=== PATIENT | male | born 1975 | race Two or more races ===

== ENCOUNTER 2020-11-07 08:20 | Emergency (ER) | payer BC, OTHER, SELFPAY ==
[~2020-11-07] VITALS: Ht 170.2 cm; Wt 91.3 kg
[2020-11-07 08:58] LABS: BASOPHILS % (AUTO) 0 % (0-1); EOSINOPHILS % (AUTO) 1 % (1-7); LYMPHOCYTES % (AUTO) 38 % (22-44); MEAN CORPUSCULAR HEMOGLOBIN 28.9 pg (27.5-34.5); MEAN CORPUSCULAR HGB CONC 34.2 g/dL (33.2-36.2); MEAN PLATELET VOLUME 7.9 fL (7.4-10.4); MONOCYTES % (AUTO) 6 % (2-9); NEUTROPHILS % (AUTO) 54 % (42-75); PLATELET COUNT 276 x10^3/uL (130-400); RED BLOOD COUNT 5.73 x10^6/uL (4.38-5.82); RED CELL DISTRIBUTION WIDTH 13.7 % (9.4-14.8)
[2020-11-07 08:59] LABS: MD NO
[2020-11-07] MEDS ORDERED: ASPIRIN 81 MG TABLET CHEW PO ONE (09:00)
[2020-11-07] MEDS ORDERED: PLEASE ENTER ALLERGIES MC SCH (09:00)
[2020-11-07 09:02] LABS: ALBUMIN 3.7 g/dL (3.4-5.0); CALCIUM 9.4 mg/dL (8.5-10.1)
[2020-11-07 09:08] LABS: ALANINE AMINOTRANSFERASE 35 U/L (12-78); ALKALINE PHOSPHATASE 70 U/L (45-117); BILIRUBIN,TOTAL 0.7 mg/dL (0.2-1.0); CREATININE 1.12 mg/dL (0.7-1.3); TOTAL PROTEIN 7.9 g/dL (6.4-8.2); TROPONIN I < 0.015 ng/mL (0.000-0.045)
[2020-11-07 09:11] LABS: CHLORIDE 108 mmol/L (98-107)
[2020-11-07 09:13] LABS: ANION GAP 3 mmol/L (5-15)
--- NOTE | 2020-11-07 09:15 | NUR ---
INSULATION FOREMAN: PT TO ROOM FROM [facility]
[2020-11-07] MEDS ORDERED: ASPIRIN 81 MG TABLET CHEW ONE (09:23)
--- NOTE | 2020-11-07 09:30 | NUR ---
PT PRESENTS TO ED WITH INTERMITTENT ACHING AND SHARP CP STARTING AT 0600 THIS AM THAT WOKE PT UP FROM SLEEP. PT REPORTS PAIN IS "DOWN" RIGHT NOW AT 6/10. PT DENIES SOB, NAUSEA. PT ON SPICE MILLER, BP, SPO2. RESPIRATIONS EVEN AND UNLABORED SATURATING WELL ON RA. AT BEDSIDE. PT MEDICATED PER EMAR. AWAITING ERMD EVALUATION.
[2020-11-07] MEDS ORDERED: MAALOX/HYOSCYAMINE/LIDOCAINE 45 ML BTL PO ONE (10:00)
[2020-11-07] MEDS ORDERED: MAALOX/HYOSCYAMINE/LIDOCAINE 45 ML BTL ONE (10:08)
[2020-11-07] MEDS ORDERED: OMNIPAQUE 350 MG/ML, 75ML BOTTLE ONE (10:30)
--- NOTE | 2020-11-07 10:54 | NUR ---
RECEIVED REPORT FROM KOBE MEJIA. ASSUMING CARE AT THIS TIME. PT BACK FROM CT. PT STATES GI COCTAIL HELPED WITH PAIN. PT RESTING COMFORTABLY ON GURNEY. ANTONINA.
--- NOTE | 2020-11-07 11:17 | NUR ---
ALL RESULTS ARE BACK AT THIS TIME. CHART UP FOR RECHECK.
[2020-11-07] MEDS ORDERED: HYDROcodone/APAP 5/325 TABLET PO ONE (12:00)
[2020-11-07] MEDS ORDERED: HYDROcodone/APAP 5/325 TABLET ONE (12:03)
[2020-11-07 12:13] VITALS: BP 104/65
== END 2020-11-07 12:15 | disposition home or self-care (01) ==
LOC: ED 08:50
DX: R07.89 Other chest pain (principal); R94.31 Abnormal electrocardiogram [ECG] [EKG]; F17.210 Nicotine dependence, cigarettes, uncomplicated
CPT/HCPCS: 36415; 71045; 71275; 80053; 84484; 85025; 93005; 99285; 99406; Q9967